=== PATIENT | female | born 1950 | race Caucasian/White ===

== ENCOUNTER 2018-09-04 03:32 | Emergency (ER) | payer OTHER ==
[2018-09-04] MEDS ORDERED: NA CHLORIDE 0.9% 1,000 ML ONE (05:06)
[2018-09-04 05:07] LABS: Absolute Lymphocytes (CBC) 1.4 K/uL (0.7-4.9); Basophils % 0.4 % (0-1.3); Eosinophils % 5.8 % (0-4.4); Lymphocytes % 36.7 % (15.3-44.8); MPV 8.8 fL (7.6-11.3); Monocytes % 11.6 % (3.3-12.3); Protime INR 1.36; RBC Red Blood Cell Count 3.48 M/uL (3.86-4.86)
[2018-09-04] MEDS ORDERED: FENTANYL CITR 100 MCG/2 ML ONE (05:30)
[2018-09-04] MEDS ORDERED: ONDANSETRON 4 MG/2 ML VIAL ONE (05:30)
[2018-09-04 05:37] LABS: ALT/SGPT 26 U/L (12-78); AST/SGOT 39 U/L (15-37); Albumin 2.8 g/dL (3.4-5.0); BUN Blood Urea Nitrogen 13 mg/dL (7-18); Bicarbonate 25 mmol/L (21-32); Bilirubin Direct 0.7 mg/dL (0-0.2); Glucose Level 114 mg/dL (74-106); Lipase 692 U/L (73-393); Magnesium 2.1 mg/dL (1.8-2.4); NT PRO-BNP 80 pg/mL (<125); Potassium 3.5 mmol/L (3.5-5.1); Protein, Total 5.7 g/dL (6.4-8.2); Sodium Level 147 mmol/L (136-145); Troponin (Emerg Dept Use Only) < 0.02 ng/mL (0.0-0.045)
[2018-09-04 05:38] LABS: Alkaline Phosphatase ND U/L (45-117)
--- NOTE | 2018-09-04 07:24 | ER ---
Nurse's Notes [facility] Name: Adrienne Fish Age: 67 yrs Sex: Female : 1950 Arrival Date: 09/04/2018 Time: 03:33 Bed 8 Private MD: Diagnosis: Fall due to bumping against object;Contusion of right hip;Contusion of right thigh;Thrombocytopenia, unspecified-liver disease;Abdominal tenderness-cecum and ascending colitis Presentation: 09/04 03:46 Presenting complaint: Patient states: Tripped over dog cage while getting out of bed, tl2 c/o severe pain to right hip. Denies hitting head or LOC. Transition of care: patient was not received from another setting of care. Onset of symptoms was September 04, 2018 at 03:00. Risk Assessment: Do you want to hurt yourself or someone else? Patient reports no desire to harm self or others. Initial Sepsis Screen: Does the patient meet any 2 criteria? No. Patient's initial sepsis screen is negative. Does the patient have a suspected source of infection? No. Patient's initial sepsis screen is negative. Care prior to arrival: None. 03:46 Method Of Arrival: Wheelchair tl2 03:46 Acuity: GARY 3 tl2 Triage Assessment: 03:50 General: Appears in no apparent distress. uncomfortable, Behavior is calm, cooperative, tl2 appropriate for age. Pain: Complains of pain in right hip, right upper leg Pain does not radiate. Pain currently is 8 out of 10 on a pain scale. Aggravated by repositioning, weight bearing, Noted to be resistant to movement. Historical: - Allergies: 03:50 Tramadol HCl; tl2 03:50 Codeine; tl2 03:50 erythromycin; tl2 05:21 Hydrocodone-Acetaminophen; tl2 - Home Meds: 03:50 Humira subcutaneous subcutaneous [Active]; prolea [Active]; Spironolactone Oral tl2 [Active]; ropinirole oral oral [Active]; hydrochlorothiazide Oral [Active]; - PMHx: 03:50 Lupus; liver disease; Rheumatoid Arthritis; Osteoporosis; Hypertension; tl2 - PSHx: 03:50 Appendectomy; ; Hysterectomy; Tubal ligation; tl2 - Immunization history:: Adult Immunizations up to date. - Social history:: Smoking status: Patient/guardian denies using tobacco. - Ebola Screening: : No symptoms or risks identified at this time. - Family history:: not pertinent. Screenin:51 Abuse screen: Denies threats or abuse. Nutritional screening: No deficits noted. tl2 Tuberculosis screening: No symptoms or risk factors identified. Fall Risk Fall in past 12 months (25 points). Gait- Impaired (20 pts.). Assessment: 03:50 General: see triage assessment. tl2 04:49 Reassessment: Pt states she would like to hold pain medication until after the imaging tl2 results are back. 06:00 Reassessment: Patient appears in no apparent distress at this time. Patient and/or tl2 family updated on plan of care and expected duration. Pain level reassessed. Patient is alert, oriented x 3, equal unlabored respirations, skin warm/dry/pink. 07:00 Reassessment: RECD REPORT FROM [facility]O DIANA. 67YO WF S/P FALL WITH R HIP AND ARM PAIN. ALL bp CURRENT ORDERS COMPLETED, RESULTS PENDING. 07:26 Reassessment: D/C ON HOLD PENDING ABX COMPLETION. bp 08:48 Reassessment: PT D/C HOME VIA W/C WITH FAMILY, DX WITH FALL AND CONTUSION. bp Vital Signs: 03:50 BP 126 / 54; Pulse 93; Resp 18; Temp 97.9(O); Pulse Ox 100% on R/A; Weight 58.97 kg; tl2 Height 5 ft. 3 in. (160.02 cm); Pain 8/10; 04:50 BP 124 / 60; Pulse 93; Resp 20; Pulse Ox 99% on R/A; tl2 07:00 BP 113 / 57; Pulse 101; Resp 16; Pulse Ox 93% ; bp 07:19 BP 113 / 57; Pulse 100; Resp 20; Pulse Ox 94% on R/A; tl2 08:47 BP 105 / 48; Pulse 108; Resp 16; Temp 98; Pulse Ox 94% ; bp 03:50 Body Mass Index 23.03 (58.97 kg, 160.02 cm) tl2 ED Course: 03:33 Patient arrived in ED. am2 03:40 Viktor Orantes MD is Attending Physician. dilia 03:47 Triage completed. tl2 03:50 Arm band placed on right wrist. tl2 03:51 Patient has correct armband on for positive identification. Bed in low position. Call tl2 light in reach. Side rails up X2. Adult w/ patient. 04:45 Hip Right 2 View XRAY In Process Unspecified. EDMS 04:45 Femur Right XRAY In Process Unspecified. EDMS 04:45 Pelvis XRAY In Process Unspecified. EDMS 04:47 Inserted saline lock: 22 gauge in left antecubital area, using aseptic technique. Blood tl2 collected. 05:01 Radiology exam delayed due to lab results not completed at this time. (BUN/Creatinine). kw1 05:25 Radiology exam delayed due to lab results not completed at this time. (BUN/Creatinine). kw1 06:20 Enedina Henley, RN is Primary Nurse. tl2 06:24 CT Traumagram (Head C Spine CAP W Con) In Process Unspecified. EDMS 07:22 Joe Gonzáles MD is Referral Physician. dilia 08:48 No provider procedures requiring assistance completed. IV discontinued, intact, bp bleeding controlled, No redness/swelling at site. Pressure dressing applied. Administered Medications: 05:00 Drug: NS 0.9% 1000 ml Route: IV; Rate: 125 ml/hr; Site: left antecubital; tl2 08:18 Follow up: IV Status: Completed infusion; IV Intake: 500ml bp 05:00 Drug: NS 0.9% 250 ml Route: IV; Rate: bolus; Site: left antecubital; tl2 08:18 Follow up: IV Status: Completed infusion; IV Intake: 250ml bp 05:19 Drug: fentaNYL (PF) 25 mcg Route: IVP; Site: left antecubital; tl2 06:00 Follow up: Response: No adverse reaction; Pain is decreased tl2 05:19 Drug: Zofran 4 mg Route: IVP; Site: left antecubital; tl2 06:00 Follow up: Response: No adverse reaction tl2 07:30 Drug: Cipro 400 mg Volume: 200 ml; Route: IVPB; Infused Over: 60 mins; Site: left bp antecubital; 08:17 Follow up: IV Status: Completed infusion; IV Intake: 200ml bp 08:17 Drug: Flagyl 500 mg Volume: 100 ml; Route: IVPB; Rate: 200 ml/hr; Infused Over: 30 bp mins; Site: left antecubital; 08:49 Follow up: IV Status: Completed infusion; IV Intake: 100ml bp Intake: 08:17 IV: 200ml; Total: 200ml. bp 08:18 IV: 250ml; Total: 450ml. bp 08:18 IV: 500ml; Total: 950ml. bp 08:49 IV: 100ml; Total: 1050ml. bp Outcome: 07:24 Discharge ordered by . dilia 08:48 Discharged to home via wheelchair, with family. bp 08:48 Condition: stable 08:48 Discharge instructions given to patient, Instructed on discharge instructions, follow up and referral plans. medication usage, Demonstrated understanding of instructions, follow-up care, medications, Prescriptions given X 4. 08:59 Patient left the ED. bp Signatures: Dispatcher [employer] EDViktor Rosado MD MD cha Knox, Taylor, RN RN tl2 Samantha Tolbert Brian, RN RN bp Laurie Jurado kw1
--- NOTE | 2018-09-04 07:24 | EDPHYS ---
Physician Documentation [facility] Name: Adrienne Fish Age: 67 yrs Sex: Female : 1950 Arrival Date: 09/04/2018 Time: 03:33 Bed 8 Private MD: ED Physician Viktor Orantes HPI: 09/04 04:24 This 67 yrs old Female presents to ER via Wheelchair with complaints of Fall dilia Injury, Leg Pain. 04:24 Details of fall: The patient fell from an upright position, while walking. Onset: The dilia symptoms/episode began/occurred just prior to arrival. Associated injuries: The patient sustained injury to the abdomen, specifically the right upper quadrant, left upper quadrant, right lower quadrant and left lower quadrant, contusion, right hip, lateral aspect of right thigh, right upper thigh and right quadriceps, decreased range of motion, painful injury, swelling. Severity of symptoms: At their worst the symptoms were moderate, in the emergency department the symptoms are unchanged. Historical: - Allergies: 03:50 Tramadol HCl; tl2 03:50 Codeine; tl2 03:50 erythromycin; tl2 05:21 Hydrocodone-Acetaminophen; tl2 - Home Meds: 03:50 Humira subcutaneous subcutaneous [Active]; prolea [Active]; Spironolactone Oral tl2 [Active]; ropinirole oral oral [Active]; hydrochlorothiazide Oral [Active]; - PMHx: 03:50 Lupus; liver disease; Rheumatoid Arthritis; Osteoporosis; Hypertension; tl2 - PSHx: 03:50 Appendectomy; ; Hysterectomy; Tubal ligation; tl2 - Immunization history:: Adult Immunizations up to date. - Social history:: Smoking status: Patient/guardian denies using tobacco. - Ebola Screening: : No symptoms or risks identified at this time. - Family history:: not pertinent. ROS: 04:24 Constitutional: Negative for fever, chills, and weight loss, Eyes: Negative for injury, dilia pain, redness, and discharge, ENT: Negative for injury, pain, and discharge, Neck: Negative for injury, pain, and swelling, Cardiovascular: Negative for chest pain, palpitations, and edema, Respiratory: Negative for shortness of breath, cough, wheezing, and pleuritic chest pain, Back: Negative for injury and pain, : Negative for injury, bleeding, discharge, and swelling, Neuro: Negative for headache, weakness, numbness, tingling, and seizure. 04:24 Abdomen/GI: Positive for abdominal pain, of the right upper quadrant, left upper quadrant, right lower quadrant and left lower quadrant. 04:24 MS/extremity: Positive for decreased range of motion, ecchymosis, pain, swelling, tenderness, of the right hip, lateral aspect of right thigh, right upper thigh and right quadriceps. Exam: 04:24 Constitutional: This is a well developed, well nourished patient who is awake, alert, dilia and in no acute distress. Head/Face: Normocephalic, atraumatic. Eyes: Pupils equal round and reactive to light, extra-ocular motions intact. Lids and lashes normal. Conjunctiva and sclera are non-icteric and not injected. Cornea within normal limits. Periorbital areas with no swelling, redness, or edema. ENT: Nares patent. No nasal discharge, no septal abnormalities noted. Tympanic membranes are normal and external auditory canals are clear. Oropharynx with no redness, swelling, or masses, exudates, or evidence of obstruction, uvula midline. Mucous membranes moist. Neck: Trachea midline, no thyromegaly or masses palpated, and no cervical lymphadenopathy. Supple, full range of motion without nuchal rigidity, or vertebral point tenderness. No Meningismus. Chest/axilla: Normal chest wall appearance and motion. Nontender with no deformity. No lesions are appreciated. Cardiovascular: Regular rate and rhythm with a normal S1 and S2. No gallops, murmurs, or rubs. Normal PMI, no JVD. No pulse deficits. Respiratory: Lungs have equal breath sounds bilaterally, clear to auscultation and percussion. No rales, rhonchi or wheezes noted. No increased work of breathing, no retractions or nasal flaring. Back: No spinal tenderness. No costovertebral tenderness. Full range of motion. Skin: Warm, dry with normal turgor. Normal color with no rashes, no lesions, and no evidence of cellulitis. Neuro: Awake and alert, GCS 15, oriented to person, place, time, and situation. Cranial nerves II-XII grossly intact. Motor strength 5/5 in all extremities. Sensory grossly intact. Cerebellar exam normal. Normal gait. Psych: Awake, alert, with orientation to person, place and time. Behavior, mood, and affect are within normal limits. 04:24 Abdomen/GI: Inspection: abdomen appears normal, Bowel sounds: normal, Palpation: mild abdominal tenderness, moderate abdominal tenderness, in the right upper quadrant, left upper quadrant, right lower quadrant and left lower quadrant, Liver: no appreciated palpable abnormalities, Hernia: not appreciated. Vital Signs: 03:50 BP 126 / 54; Pulse 93; Resp 18; Temp 97.9(O); Pulse Ox 100% on R/A; Weight 58.97 kg; tl2 Height 5 ft. 3 in. (160.02 cm); Pain 8/10; 04:50 BP 124 / 60; Pulse 93; Resp 20; Pulse Ox 99% on R/A; tl2 07:00 BP 113 / 57; Pulse 101; Resp 16; Pulse Ox 93% ; bp 07:19 BP 113 / 57; Pulse 100; Resp 20; Pulse Ox 94% on R/A; tl2 08:47 BP 105 / 48; Pulse 108; Resp 16; Temp 98; Pulse Ox 94% ; bp 03:50 Body Mass Index 23.03 (58.97 kg, 160.02 cm) tl2 MDM: 03:40 Patient medically screened. [facility] 04:24 Data reviewed: vital signs, nurses notes, lab test result(s), EKG, radiologic studies, [facility] CT scan, plain films. 09/04 04:23 Order name: Basic Metabolic Panel [facility] 09/04 04:23 Order name: CBC with Diff [facility] 09/04 04:23 Order name: LFT's [facility] 09/04 04:23 Order name: Magnesium; Complete Time: 05:42 [facility] 09/04 04:23 Order name: NT PRO-BNP; Complete Time: 05:42 [facility] 09/04 04:23 Order name: PT-INR; Complete Time: 05:12 [facility] 09/04 04:23 Order name: Troponin (emerg Dept Use Only); Complete Time: 05:42 [facility] 09/04 04:23 Order name: Lipase; Complete Time: 05:42 [facility] 09/04 04:24 Order name: Basic Metabolic Panel; Complete Time: 05:42 EDMS 09/04 04:25 Order name: CBC with Automated Diff ED[facility] 09/04 04:25 Order name: Liver (Hepatic) Function; Complete Time: 05:42 EDMS 09/04 05:09 Order name: CBC Smear Scan [facility] 09/04 04:17 Order name: Hip Right 2 View XRAY 2 09/04 04:17 Order name: Femur Right XRAY [facility] 09/04 04:23 Order name: Pelvis XRAY [facility] 09/04 04:23 Order name: EKG; Complete Time: 04:25 [facility] 09/04 04:23 Order name: Cardiac monitoring; Complete Time: 04:40 [facility] 09/04 04:23 Order name: EKG - Nurse/Tech; Complete Time: 04:40 [facility] 09/04 04:23 Order name: IV Saline Lock; Complete Time: 04:47 [facility] 09/04 04:23 Order name: Labs collected and sent; Complete Time: 04:47 [facility] 09/04 04:23 Order name: O2 Per Protocol; Complete Time: 04:25 [facility] 09/04 04:23 Order name: CT Traumagram (Head C Spine CAP W Con) [facility] 09/04 04:23 Order name: O2 Sat Monitoring; Complete Time: 04:25 [facility] Administered Medications: 05:00 Drug: NS 0.9% 1000 ml Route: IV; Rate: 125 ml/hr; Site: left antecubital; tl2 08:18 Follow up: IV Status: Completed infusion; IV Intake: 500ml bp 05:00 Drug: NS 0.9% 250 ml Route: IV; Rate: bolus; Site: left antecubital; tl2 08:18 Follow up: IV Status: Completed infusion; IV Intake: 250ml bp 05:19 Drug: fentaNYL (PF) 25 mcg Route: IVP; Site: left antecubital; tl2 06:00 Follow up: Response: No adverse reaction; Pain is decreased tl2 05:19 Drug: Zofran 4 mg Route: IVP; Site: left antecubital; tl2 06:00 Follow up: Response: No adverse reaction tl2 07:30 Drug: Cipro 400 mg Volume: 200 ml; Route: IVPB; Infused Over: 60 mins; Site: left bp antecubital; 08:17 Follow up: IV Status: Completed infusion; IV Intake: 200ml bp 08:17 Drug: Flagyl 500 mg Volume: 100 ml; Route: IVPB; Rate: 200 ml/hr; Infused Over: 30 bp mins; Site: left antecubital; 08:49 Follow up: IV Status: Completed infusion; IV Intake: 100ml bp Disposition: 09/04/18 07:24 Discharged to Home. Impression: Fall due to bumping against object, Contusion of right hip, Contusion of right thigh, Thrombocytopenia, unspecified - liver disease, Abdominal tenderness - cecum and ascending colitis. - Condition is Stable. - Discharge Instructions: Abdominal Pain, Adult, Contusion, Hematoma, Hematoma, [id number]-sm-[id number], Thrombocytopenia, Contusion, Pcct-ic-Rfum, Abdominal Pain, Adult, [id number]-bs-[id number]. - Prescriptions for Bentyl 20 mg Oral Tablet - take 1 tablet by ORAL route every 6 hours As needed; 20 tablet. Flagyl 500 mg Oral Tablet - take 1 tablet by ORAL route every 8 hours for 10 days; 30 tablet. Cipro 500 mg Oral Tablet - take 1 tablet by ORAL route every 12 hours for 10 days; 20 tablet. - Medication Reconciliation Form, Thank You Letter, Antibiotic Education, Prescription Opioid Use form. - Follow up: Private Physician; When: 2 - 3 days; Reason: Recheck today's complaints, Continuance of care, Re-evaluation by your physician. Follow up: Dr. Joe Gonzáles; When: 2 - 3 days; Reason: Recheck today's complaints, Re-evaluation by your physician. - Problem is new. - Symptoms have improved. Signatures: Dispatcher [employer] EDMS Viktor Orantes MD MD cha Joaquin, Henry, RN RN Enedina Henley RN RN tl2 Manas Chacon RN RN bp Corrections: (The following items were deleted from the chart) 08:59 07:24 09/04/2018 07:24 Discharged to Home. Impression: Fall due to bumping against bp object; Contusion of right hip; Contusion of right thigh; Thrombocytopenia, unspecified - liver disease; Abdominal tenderness - cecum and ascending colitis. Condition is Stable. Discharge Instructions: Contusion, Hematoma, Hematoma, [id number], Contusion, Ygiz-eu-[id number]. Forms are Medication Reconciliation Form, Thank You Letter, Antibiotic Education, Prescription Opioid Use. Follow up: Private Physician; When: 2 - 3 days; Reason: Recheck today's complaints, Continuance of care, Re-evaluation by your physician. Follow up: Dr. Joe Gonzáles; When: 2 - 3 days; Reason: Recheck today's complaints, Re-evaluation by your physician. Problem is new. Symptoms have improved. dilia
--- NOTE | 2018-09-04 07:40 | RAD REPORT ---
EXAM DESCRIPTION: RAD - Hip Right 2 View - 09/04/2018 4:45 am CLINICAL HISTORY: Fall, right hip pain COMPARISON: None. FINDINGS: AP and frog-leg views of the right hip were obtained. There is no fracture or dislocation . No AVN or focal femoral head abnormality. Mild degenerative changes are present along the acetabul ar rim. No SI joint or right hemipelvis abnormality. No suspicious finding around the right hip joint . IMPRESSION: Mild for age right hip joint degenerative change. No fracture or acute finding seen.
--- NOTE | 2018-09-04 07:42 | RAD REPORT ---
EXAM DESCRIPTION: RAD - Pelvis - 09/04/2018 4:45 am CLINICAL HISTORY: Trip and fall, pelvic pain, hip pain COMPARISON: None. TECHNIQUE: AP imaging of the pelvis was obtained. FINDINGS: Minimal lower lumbar spine degenerative change present only partially imaged. Sacral ala a nd SI joints within normal limits. No fracture of the bony pelvis. Mild bilateral hip joint degenerat florecita change seen. No fracture or acute hip joint finding. IMPRESSION: No fracture or other acute finding identifiable.
--- NOTE | 2018-09-04 07:42 | RAD REPORT ---
EXAM DESCRIPTION: RAD - Femur Right - 09/04/2018 4:45 am CLINICAL HISTORY: Trip and fall, right leg pain COMPARISON: None. FINDINGS: No fracture, dislocation or periosteal reaction noted. Mild degenerative change at the hip joint. No air or foreign body in the soft tissues. IMPRESSION: Negative right femur examination for acute finding. Mild degenerative change at the hip joint.
[2018-09-04] MEDS ORDERED: CIPROFLOXACIN 400mg IV 400 MG/200 ML BAG IV ONE (07:44)
[2018-09-04] MEDS ORDERED: METRONIDAZOLE 500mg IVPB 500 MG/100 ML BAG IV ONE (07:45)
[2018-09-04 08:07] LABS: Urine White Blood Cell Casts OK
[2018-09-04 08:08] LABS: Blood Morphology Comment NOT SEEN (NOT SEEN); Platelet Estimate DECR
--- NOTE | 2018-09-04 09:54 | RAD REPORT ---
EXAM DESCRIPTION: CT Chest With Intravenous Contrast CT Abdomen and Pelvis With Intravenous Contrast CLINICAL HISTORY: The patient is 67 years old and is Female; PAIN TECHNIQUE: Axial computed tomography images of the chest, abdomen and pelvis with intravenous contra st. Sagittal and coronal reformatted images were created and reviewed. This CT exam was performed using one or more of the following dose reduction techniques: automated exposure control, adjustme nt of the mA and/or kV according to patient size, and/or use of iterative reconstruction technique. COMPARISON: No relevant prior studies available. FINDINGS: ARTIFACTS: The exam is suboptimal secondary to motion artifact. CHEST: LUNGS: Minimal dependent densities in the lung bases are present. PLEURAL SPACE: Unremarkable. No significant effusion. No pneumothorax. HEART: No cardiomegaly. No pericardial effusion. ABDOMEN: LIVER: The liver has a nodular contour. GALLBLADDER AND BILE DUCTS: The gallbladder is distended with a few calcified gallstones. There is no ductal dilatation. PANCREAS: No ductal dilation. No mass. SPLEEN: The spleen is enlarged. ADRENALS: Unremarkable. No mass. KIDNEYS AND URETERS: Unremarkable. No hydronephrosis. No solid mass. STOMACH AND BOWEL: The stomach is decompressed. The small bowel is normal in caliber. Stool is p resent throughout the colon. Extensive mucosal thickening involving the cecum and proximal ascending colon is present. There is no bowel obstruction. PELVIS: APPENDIX: No findings to suggest acute appendicitis. BLADDER: Unremarkable. No mass. REPRODUCTIVE: The patient is status post hysterectomy. CHEST, ABDOMEN and PELVIS: INTRAPERITONEAL SPACE: Unremarkable. No significant fluid collection. No free air. BONES/JOINTS: Mild multilevel degenerative change of the spine is present. There is no acute fra cture of the visualized axial and appendicular skeleton. SOFT TISSUES: Bilateral breast implants are present. VASCULATURE: Several prominent collateral vessels within the left upper quadrant are noted. No aortic aneurysm. LYMPH NODES: Unremarkable. No enlarged lymph nodes. IMPRESSION: 1. No evidence of solid organ injury or traumatic bony findings on this contrasted CT of the chest, abdomen, and pelvis. 2. Extensive mucosal thickening involving cecum and proximal ascending colon. Findings may be secon maryjane to an infectious versus inflammatory process. However, direct visualization is recommended to ex clude underlying lesion. 3. Cirrhotic liver, splenomegaly, and findings suggestive of portal hypertension. 4. Cholelithiasis without CT evidence to suggest cholecystitis. EXAM DESCRIPTION: CT Head Without Intravenous Contrast CT Cervical Spine Without Intravenous Contrast CLINICAL HISTORY: The patient is 67 years old and is Female; PAIN TECHNIQUE: Axial computed tomography images of the head/brain and cervical spine without intravenous contrast. Sagittal and coronal reformatted images were created and reviewed. This CT exam was pe rformed using one or more of the following dose reduction techniques: automated exposure control, a djustment of the mA and/or kV according to patient size, and/or use of iterative reconstruction techn ique. COMPARISON: No relevant prior studies available. FINDINGS: BRAIN: Unremarkable. No hemorrhage. No significant white matter disease. No edema. VENTRICLES: Unremarkable. No ventriculomegaly. SKULL: No acute fracture. SINUSES: Unremarkable as visualized. No acute sinusitis. MASTOID AIR CELLS: Unremarkable as visualized. No mastoid effusion. VERTEBRAE: The vertebral body heights and alignment are maintained. No acute fracture. DISCS/SPINAL CANAL/NEURAL FORAMINA: Anterior cervical disc fusion from C4 through C7 is present with anterior plate and screw fixation. Intervertebral disc space narrowing at C3-C4 is noted. No sig nificant canal stenosis or neural foraminal narrowing is noted. SOFT TISSUES: The soft tissues are normal. IMPRESSION: 1. No acute intracranial findings. 2. Postsurgical change of the cervical spine without acute findings. Electronically signed by: Shari Giraldo MD 09/04/2018 6:40 AM CDT Due to temporary technical issues with the PACS/Fluency reporting system, reports are being signed by the in house radiologist as a courtesy to ensure prompt reporting. The interpreting radiologist is f ully responsible for the content of the report.
--- NOTE | 2018-09-04 10:56 | EKG ---
Test Date: 2018-09-04 Test Time: 04:37:37 Supervisor [employer] Department: ROSA MARIA MEASUREMENT RESULTS: Intervals: Rate: 100 TX: 128 QRSD: 70 QT: 384 QTc: 495 [place]: P: 78 TX: 128 QRS: 48 T: 68 INTERPRETIVE STATEMENTS: Undetermined rhythm Junctional ST depression, probably normal Prolonged QT Abnormal ECG No previous ECG available for comparison Electronically Signed On 09-04-18 10:54:47 CDT by Anupam Mazariegos
== END 2018-09-04 08:59 | disposition home or self-care (01) ==
LOC: ER 03:32
DX: S70.01XA Contusion of right hip, initial encounter (principal); S70.11XA Contusion of right thigh, initial encounter; D69.6 Thrombocytopenia, unspecified; R10.819 Abdominal tenderness, unspecified site; W18.00XA Striking against unspecified object with subsequent fall, initial encounter; Y93.01 Activity, walking, marching and hiking; Y92.9 Unspecified place or not applicable; I10 Essential (primary) hypertension; Z88.3 Allergy status to other anti-infective agents; Z88.5 Allergy status to narcotic agent
CPT/HCPCS: 93005; 85025; 80048; 36415; 83735; 85610; 80076; 84484; 83690; 83880; 70450; 72125; 71260; 74177; 72170; 73502; 73552; Q9967; J3010; J7030; J2405; J0744; 96365; 96366; 96367; 96375; 99284